=== PATIENT | male | born 1970 | race Caucasian/White ===

== ENCOUNTER 2017-07-12 20:44 | Inpatient (IN) ==
[2017-07-12] MEDS ORDERED: MARCAINE 0.5% INJ ONE (21:08)
[2017-07-12] MEDS ORDERED: MARCAINE 0.5% PF ONE (21:11)
[2017-07-12] MEDS ORDERED: NS 1,000 ML IV ONE (21:12)
[2017-07-12 21:13] LABS: MANUAL DIFF NEEDED? NO
[2017-07-12 21:15] LABS: BASO% 0.5 % (0.0-0.8); EOS# 0.27 X1000 (0.0-0.7); EOS% 1.8 % (0.0-10.0); HEMATOCRIT 39.6 % (42.0-52.0); HEMOGLOBIN 13.6 g/dL (14.0-18.0); IMM GRAN# 0.07 X1000 (0.0-0.04); IMM GRAN% 0.5 % (0.0-0.5); LYMPH# 2.38 X1000 (1.2-3.4); LYMPH% 15.6 % (20.5-51.1); MCH 30.6 PG (27-31); MCHC 34.3 g/dL (33-37); MONO# 1.73 X1000 (0.11-0.59); MONO% 11.4 % (1.7-9.3); MPV 11.9 FL (7.4-10.4); NEUT% 70.2 % (42.2-75.2); PLT 163 X1000 (130-400); RBC 4.45 XMIL (4.7-6.1)
[2017-07-12] MEDS ORDERED: ZOSYN 3.375 GM in NS 50 ML IV SCH (21:15)
[2017-07-12 21:28] LABS: ALBUMIN 3.8 g/dL (3.5-5.0); CALCIUM 9.5 mg/dL (8.8-10.2); POTASSIUM 3.6 mmol/L (3.5-5.1); TOTAL BILIRUBIN 0.4 mg/dL (0.20-1.00); TOTAL PROTEIN 7.4 g/dL (6.3-8.3)
--- NOTE | 2017-07-12 21:36 | Diag Imaging Result Doc PS360 ---
EXAM: FOOT COMPLETE RIGHT HISTORY: 3 week history of trauma TECHNIQUE: Three views COMPARISON: None. FINDINGS: No fracture. No dislocation. IMPRESSION: No acute bony injury. Electronically signed by Tom Arvizu 07/12/2017 9:34 PM
[2017-07-12] MEDS ORDERED: VANCOMYCIN IV PER PHARMACY MISC SCH (21:45)
[2017-07-12] MEDS ORDERED: ZOSYN 3.375 GM in NS 50 ML IV ONE (21:47)
[2017-07-12] MEDS ORDERED: VANCOMYCIN 1 GM/NS 1 GM/250 ML IVPB IV ONE ×2 (21:47→23:30)
[2017-07-12] MEDS ORDERED: VANCOMYCIN 1 GM/NS 1 GM/250 ML IVPB IV SCH (22:00)
[2017-07-12] MEDS: ZOSYN 3.375 GM in NS 50 ML IV ONE (22:01)
[2017-07-13] MEDS: ZOSYN 3.375 GM in NS 50 ML IV SCH ×3 (06:59→20:16)
[2017-07-13] MEDS ORDERED: CRESTOR PO SCH (09:15)
[2017-07-13 09:20] LABS: MANUAL DIFF NEEDED? NO
[2017-07-13 09:29] LABS: BASO% 0.5 % (0.0-0.8); EOS# 0.36 X1000 (0.0-0.7); EOS% 3.2 % (0.0-10.0); HEMATOCRIT 36.9 % (42.0-52.0); HEMOGLOBIN 12.5 g/dL (14.0-18.0); IMM GRAN# 0.03 X1000 (0.0-0.04); IMM GRAN% 0.3 % (0.0-0.5); LYMPH# 1.97 X1000 (1.2-3.4); LYMPH% 17.3 % (20.5-51.1); MCH 30.2 PG (27-31); MCHC 33.9 g/dL (33-37); MCV 89.1 FL (81-99); MONO% 11.4 % (1.7-9.3); MPV 12.6 FL (7.4-10.4); NEUT% 67.3 % (42.2-75.2); PLT 140 X1000 (130-400); RBC 4.14 XMIL (4.7-6.1)
[2017-07-13 09:37] LABS: AGAP 10; BUN 14 mg/dL (8-22); CALCIUM 8.8 mg/dL (8.8-10.2); CHLORIDE 101 mmol/L (98-107); COSMO 273; POTASSIUM 3.4 mmol/L (3.5-5.1); SODIUM 136 mmol/L (136-145); TCO2 25 mmol/L (25-35)
[2017-07-13] MEDS: VANCOMYCIN 1,800 MG in NS 250 ML IV SCH ×2 (10:47→23:51)
[2017-07-13] MEDS: VITAMIN D PO SCH (10:47)
[2017-07-13] MEDS: ASPIRIN EC PO SCH (10:47)
[2017-07-13] MEDS: CULTURELLE PO SCH (10:48)
[2017-07-13] MEDS: BYSTOLIC PO SCH (10:49)
[2017-07-13] MEDS: NS 1,000 ML IV SCH ×2 (10:49→20:16)
[2017-07-13] MEDS: CRESTOR PO SCH (20:16)
[2017-07-14] MEDS: ZOSYN 3.375 GM in NS 50 ML IV SCH ×4 (03:40→23:02)
[2017-07-14 06:10] LABS: MANUAL DIFF NEEDED? NO
[2017-07-14 06:29] LABS: BASO% 0.7 % (0.0-0.8); EOS# 0.75 X1000 (0.0-0.7); EOS% 7.4 % (0.0-10.0); HEMATOCRIT 38.6 % (42.0-52.0); HEMOGLOBIN 12.8 g/dL (14.0-18.0); IMM GRAN# 0.05 X1000 (0.0-0.04); IMM GRAN% 0.5 % (0.0-0.5); LYMPH# 2.88 X1000 (1.2-3.4); LYMPH% 28.4 % (20.5-51.1); MCH 29.8 PG (27-31); MCHC 33.2 g/dL (33-37); MONO% 10.8 % (1.7-9.3); MPV 12.3 FL (7.4-10.4); NEUT% 52.2 % (42.2-75.2); PLT 189 X1000 (130-400); RBC 4.29 XMIL (4.7-6.1)
[2017-07-14 06:41] LABS: AGAP 9; BUN 14 mg/dL (8-22); CALCIUM 8.7 mg/dL (8.8-10.2); CHLORIDE 104 mmol/L (98-107); COSMO 279; POTASSIUM 3.7 mmol/L (3.5-5.1); SODIUM 139 mmol/L (136-145); TCO2 25 mmol/L (25-35)
[2017-07-14] MEDS: VITAMIN D PO SCH (09:49)
[2017-07-14] MEDS: CULTURELLE PO SCH (09:49)
[2017-07-14] MEDS: ASPIRIN EC PO SCH (09:49)
[2017-07-14] MEDS: BYSTOLIC PO SCH (09:50)
[2017-07-14] MEDS: NS 1,000 ML IV SCH ×2 (09:51→23:02)
[2017-07-14] MEDS: VANCOMYCIN 1,800 MG in NS 250 ML IV SCH ×2 (10:55→23:02)
[2017-07-14] MEDS: LAMISIL PO SCH (12:43)
[2017-07-14] MEDS: CRESTOR PO SCH (21:43)
[2017-07-15] MEDS: ZOSYN 3.375 GM in NS 50 ML IV SCH ×4 (04:52→20:31)
[2017-07-15] MEDS: VITAMIN D PO SCH (09:15)
[2017-07-15] MEDS: CULTURELLE PO SCH (09:15)
[2017-07-15] MEDS: BYSTOLIC PO SCH (09:15)
[2017-07-15] MEDS: ASPIRIN EC PO SCH (09:15)
[2017-07-15] MEDS: NS 1,000 ML IV SCH ×2 (09:18→12:09)
[2017-07-15] MEDS: LAMISIL PO SCH (10:36)
[2017-07-15] MEDS: VANCOMYCIN 1,800 MG in NS 250 ML IV SCH ×2 (12:07→22:03)
--- NOTE | 2017-07-15 12:35 | Diag Imaging Result Doc PS360 ---
EXAM: MRI LOWER EXT W/WO CON-RIGHT HISTORY: R/O Osteomyelitis TECHNIQUE: MRI of the right foot with and without gadolinium T1 axial, T2 axial, T2 coronal, T1 coronal, sagittal STIR and T1, axial, coronal, and sagittal T1 post fat sat. COMMENT: There is generalized edema in the subcutaneous soft tissues over the forefoot dorsally. There is apparent bone marrow edema in the base of the third metatarsal, which correlates with increased signal intensity on the T1 weighted post gadolinium enhanced fat sat images. Otherwise there is no evidence of bone marrow edema. There is some fluid in a synovial cyst arising posteriorly from the subtalar joint. IMPRESSION: Possibility of osteomyelitis at the base of the third metatarsal is suspected. Electronically signed by Kian Haynes 07/15/2017 12:33 PM
[2017-07-15] MEDS: CRESTOR PO SCH (20:31)
[2017-07-16] MEDS: ZOSYN 3.375 GM in NS 50 ML IV SCH ×4 (02:03→20:45)
[2017-07-16] MEDS: NS 1,000 ML IV SCH (05:25)
[2017-07-16] MEDS: LAMISIL PO SCH (08:41)
[2017-07-16] MEDS: CULTURELLE PO SCH (08:41)
[2017-07-16] MEDS: BYSTOLIC PO SCH (08:41)
[2017-07-16] MEDS: VITAMIN D PO SCH (08:41)
[2017-07-16] MEDS: ASPIRIN EC PO SCH (08:41)
[2017-07-16] MEDS: VANCOMYCIN 1,800 MG in NS 250 ML IV SCH ×2 (11:16→22:10)
[2017-07-16] MEDS ORDERED: SALINE LOCK IV FLUID XX ONE (17:04)
[2017-07-16] MEDS: LASIX PO SCH (17:18)
[2017-07-16] MEDS: CRESTOR PO SCH (20:45)
[2017-07-17] MEDS: ZOSYN 3.375 GM in NS 50 ML IV SCH ×3 (02:12→14:50)
[2017-07-17 07:07] LABS: AGAP 10; BUN 9 mg/dL (8-22); CALCIUM 9.2 mg/dL (8.8-10.2); CHLORIDE 108 mmol/L (98-107); COSMO 280; POTASSIUM 3.9 mmol/L (3.5-5.1); SODIUM 141 mmol/L (136-145); TCO2 23 mmol/L (25-35)
[2017-07-17 08:05] LABS: INR 1.08 (0.86-1.15); PROTIME 14.9 Seconds (12.1-15.5)
[2017-07-17] MEDS: VITAMIN D PO SCH (08:25)
[2017-07-17] MEDS: LAMISIL PO SCH (08:25)
[2017-07-17] MEDS: CULTURELLE PO SCH (08:25)
[2017-07-17] MEDS: ASPIRIN EC PO SCH (08:25)
[2017-07-17] MEDS: LASIX PO SCH (08:26)
[2017-07-17] MEDS ORDERED: BYSTOLIC PO SCH (09:00)
[2017-07-17] MEDS ORDERED: NS 250 ML ONE (09:05)
--- NOTE | 2017-07-17 10:37 | Diag Imaging Result Doc PS360 ---
EXAM: CHEST-PORTABLE HISTORY: picc placement TECHNIQUE: Single view of the chest was performed portably. COMPARISON: 05/08/2017 FINDINGS: A right PICC catheter is been placed with its tip at the lower SVC.. There is cardiomegaly. No infiltrates or effusions are appreciated. The pulmonary vasculature is not congested. IMPRESSION: Satisfactory PICC placement. Cardiomegaly. No acute cardiopulmonary abnormality is identified. Electronically signed by Lisbet Barreto 07/17/2017 10:34 AM
[2017-07-17] MEDS: VANCOMYCIN 1,800 MG in NS 250 ML IV SCH (11:18)
[2017-07-17 16:44] VITALS: BP 152/78
== END 2017-07-17 18:25 | disposition home health service (06) ==
LOC: P.ED 20:44 → P.MEDSURG 20:45 → SUATTDRO 20:45
PROVIDERS: ATTEND Internal Medicine